=== PATIENT | female | born 1975 | race African-American/Black ===

== ENCOUNTER 2018-01-20 04:38 | Emergency (ER) | payer OTHER ==
[~2018-01-20] VITALS: Ht 160 cm; Wt 62.7 kg
[~2018-01-20 04:38] MED LIST: CARI350 PO; DEPOP150I IM; PERCT10 PO
[2018-01-20] MEDS ORDERED: TRAM50TA4 PO (04:47)
[2018-01-20] MEDS ORDERED: CYCL10 PO (04:47)
[2018-01-20 06:22] VITALS: BP 128/83
== END 2018-01-20 06:50 | disposition home or self-care (01) ==
LOC: EMS 04:39
DX: G56.91 Unspecified mononeuropathy of right upper limb (principal); F12.90 Cannabis use, unspecified, uncomplicated
CPT/HCPCS: 99283

== ENCOUNTER 2022-01-25 19:06 | Emergency (ER) | payer OTHER ==
[~2022-01-25] VITALS: Ht 160 cm; Wt 81.8 kg
[~2022-01-25 19:06] MED LIST changes: -CARI350 PO; +CYCL-448 PO; -DEPOP150I IM; +MEDR150V13 IM; +OXYC-490 PO; -PERCT10 PO; +TRAM50TA4 PO
[2022-01-25] MEDS ORDERED: SODIUM CHLORIDE 0.9% 1,000 ML IV ONE (20:45)
[2022-01-25 21:13] LABS: BASOPHILS % (AUTO) 0.3 % (0.0-2.0); EOSINOPHILS % (AUTO) 0.4 % (1.0-6.0); HEMATOCRIT 37.2 % (36-46); HEMOGLOBIN 12.4 g/dL (12.0-16.0); LYMPHOCYTES # (AUTO) 1.1 K/uL (1.0-4.8); LYMPHOCYTES % (AUTO) 24.8 % (22.0-44.0); MEAN CORPUSCULAR HEMOGLOBIN 29.7 pg (26.0-34.0); MEAN CORPUSCULAR HGB CONC 33.4 G/dL (31.0-37.0); MEAN CORPUSCULAR VOLUME 89 fL (80-100); MONOCYTES # (AUTO) 0.3 K/uL (0.1-1.0); MONOCYTES % (AUTO) 6.4 % (2.0-9.0); NEUTROPHILS # (AUTO) 3.2 K/uL (1.8-7.7); NEUTROPHILS % (AUTO) 68.1 % (40.0-70.0); PLATELET COUNT (AUTO) 266 K/uL (150-450); RED BLOOD CELL COUNT(AUTO) 4.18 MIL/uL (4.00-5.20)
[2022-01-25 22:00] LABS: APPEARANCE,URINE CLEAR (CLEAR); BILIRUBIN,URINE NEGATIVE (NEGATIVE); GLUCOSE, URINE (UA) NEGATIVE (NEGATIVE); KETONES,URINE NEGATIVE (NEGATIVE); LEUKOCYTE ESTERASE ,URINE NEGATIVE (NEGATIVE); NITRATE,URINE NEGATIVE (NEGATIVE); OCCULT BLOOD,URINE TRACE (NEGATIVE); PH,URINE 5.5 (5.0-8.0); PROTEIN,URINE NEGATIVE (NEGATIVE); SPECIFIC GRAVITIY, URINE 1.011 (1.003-1.030); UROBILINOGEN,URINE <=1.0 mg/dL (<=1.0)
[2022-01-25 22:02] LABS: ANION GAP 11 mmol/L (8-16); CALCIUM, TOTAL 9.5 mg/dL (8.8-10.5); CARBON DIOXIDE 25 mmol/L (22-29); CHLORIDE 104 mmol/L (98-107); CREATININE 0.78 mg/dL (0.60-1.30); GLUCOSE,RANDOM 109 mg/dL (70-110); POTASSIUM 3.9 mmol/L (3.5-5.1); SODIUM SERUM 140 mmol/L (136-145); UREA NITROGEN, BLOOD 4 mg/dL (7-18)
[2022-01-25 22:04] LABS: GLOMERULAR FILTR. RATE CALC > 60 mL/min (>60)
[2022-01-25 22:06] LABS: AMPHET/METH SCREEN,URINE NEGATIVE (NEGATIVE); BARBITURATE SCREEN, URINE NEGATIVE (NEGATIVE); BENZODIAZEPINES SCREEN,URINE NEGATIVE (NEGATIVE); CANNABINOID SCREEN,URINE POSITIVE (NEGATIVE); COCAINE SCREEN,URINE NEGATIVE (NEGATIVE); METHADONE SCREEN, URINE NEGATIVE (NEGATIVE); OPIATE SCREEN,URINE NEGATIVE (NEGATIVE)
[2022-01-25 22:07] LABS: PHENCYCLIDINE SCREEN,URINE NEGATIVE (NEGATIVE)
[2022-01-25 22:12] LABS: BACTERIA,URINE None Seen /HPF (None Seen); RBC,URINE 0-2 /HPF (0-2); WBC,URINE 0-2 /HPF (0-5)
[2022-01-25 22:14] LABS: ALANINE AMINOTRANSFERASE 148 U/L (12-78); ALBUMIN 3.9 g/dL (3.4-5.0); ALKALINE PHOSPHATASE 126 U/L (46-116); ASPARTATE AMINOTRANSFERASE 128 U/L (15-37); BILIRUBIN,TOTAL 0.2 mg/dL (0.1-1.0); HCG,QUANTITATIVE < 1 mIU/mL (0-6); LIPASE 76 U/L (73-393); TOTAL PROTEIN, SERUM 8.1 g/dL (6.4-8.2)
[2022-01-25] MEDS ORDERED: ONDANSETRON HCL 4 MG/2 ML VIAL IVP ONE (22:30)
[2022-01-25] MEDS ORDERED: KETOROLAC TROMETHAMINE 30 MG/ML VIAL IVP ONE (22:30)
[2022-01-25] MEDS ORDERED: MAG HYDROX/AL HYDROX/SIMETH 30 ML SUSP UDCUP PO ONE (22:30)
[2022-01-25] MEDS ORDERED: FAMOTIDINE 10 MG/ML 2 ML VIAL IVP ONE (22:30)
[2022-01-25] MEDS ORDERED: SODIUM CHLORIDE 0.9% 100 ML ONE (22:48)
[2022-01-25] MEDS ORDERED: IOHEXOL 350 MG/ML 100 ML VIAL ONE (22:49)
[2022-01-26 00:15] VITALS: BP 138/86
[2022-01-26] MEDS ORDERED: CIPROFLOXACIN HCL 250 MG TABLET PO ONE (00:15)
[2022-01-26] MEDS ORDERED: MetroNIDAZOLE 250 MG TABLET PO ONE (00:15)
[2022-01-26] MEDS ORDERED: METR500 PO (00:18)
[2022-01-26] MEDS ORDERED: CIPR500T10 PO (00:18)
== END 2022-01-26 00:44 | disposition home or self-care (01) ==
LOC: EMS 19:15
DX: K51.00 Ulcerative (chronic) pancolitis without complications (principal); F12.90 Cannabis use, unspecified, uncomplicated; Z88.0 Allergy status to penicillin; Z79.899 Other long term (current) drug therapy
CPT/HCPCS: 99285; 74177; 96374; 76700; 96375; 96361; 80053; 83690; 84702; 85025; 36415; 80307; 81001; J3490; J1885; J2405; Q9967; J7050

== ENCOUNTER 2024-06-27 10:55 | Emergency (ER) | payer MEDICAID, OTHER ==
[~2024-06-27] VITALS: Ht 160 cm; Wt 61.4 kg
[~2024-06-27 10:55] MED LIST changes: +CIPR500T10 PO; +METR500 PO; -TRAM50TA4 PO; +TRAM50TA5 PO
[2024-06-27 10:59] VITALS: TEMP 99.1
[2024-06-27 12:07] LABS: BASOPHILS % (AUTO) 0.8 % (0.0-2.0); EOSINOPHILS % (AUTO) 0.2 % (1.0-6.0); HEMOGLOBIN 12.3 g/dL (12.0-16.0); LYMPHOCYTES # (AUTO) 0.2 K/uL (1.0-4.8); LYMPHOCYTES % (AUTO) 3.7 % (22.0-44.0); MEAN CORPUSCULAR HEMOGLOBIN 30.9 pg (26.0-34.0); MEAN CORPUSCULAR HGB CONC 33.3 G/dL (31.0-37.0); MEAN CORPUSCULAR VOLUME 93 fL (80-100); MONOCYTES # (AUTO) 0.8 K/uL (0.1-1.0); NEUTROPHILS # (AUTO) 4.1 K/uL (1.8-7.7); NEUTROPHILS % (AUTO) 80.3 % (40.0-70.0); PLATELET COUNT (AUTO) 325 K/uL (150-450); RED BLOOD CELL COUNT(AUTO) 3.99 MIL/uL (4.00-5.20); RED CELL DISTRIBUTION WIDTH 13.7 % (11.5-14.5); WHITE BLOOD COUNT (AUTO) 5.1 K/uL (4.5-11.0)
[2024-06-27 12:16] LABS: ANION GAP 12 mmol/L (8-16); CALCIUM, TOTAL 8.6 mg/dL (8.8-10.5); CARBON DIOXIDE 26 mmol/L (22-29); CHLORIDE 97 mmol/L (98-107); CREATININE 0.85 mg/dL (0.60-1.30); GLOMERULAR FILTR. RATE CALC > 60 mL/min (>60); GLUCOSE,RANDOM 105 mg/dL (70-110); POTASSIUM 3.8 mmol/L (3.5-5.1); SODIUM SERUM 135 mmol/L (136-145); UREA NITROGEN, BLOOD 7 mg/dL (7-18)
[2024-06-27] MEDS: KETOROLAC TROMETHAMINE 30 MG/ML VIAL IVP ONE (12:31)
[2024-06-27] MEDS: SODIUM CHLORIDE 0.9% 2,000 ML IV ONE (12:31)
[2024-06-27] MEDS: METHOCARBAMOL 100 MG/ML 10 ML VIAL IVP ONE (12:31)
[2024-06-27] MEDS: ONDANSETRON HCL 4 MG/2 ML VIAL IVP ONE (12:31)
[2024-06-27] MEDS: HYDROmorphone HCL 2 MG/ML SYRINGE IVP ONE (13:32)
[2024-06-27 13:40] VITALS: BP 133/78; PULSE 98; RESP 17; O2SAT 100
[2024-06-27] MEDS ORDERED: METH-659 PO (14:11)
[2024-06-27] MEDS ORDERED: ONDA-104 PO (14:11)
[2024-06-27] MEDS ORDERED: IBUP-1554 PO (14:11)
[2024-06-27] MEDS ORDERED: HYDR-4062 PO (14:11)
== END 2024-06-27 14:53 | disposition home or self-care (01) ==
LOC: EMS 10:56
DX: G89.29 Other chronic pain (principal); M54.50 Low back pain, unspecified; R51.9 Headache, unspecified; F12.90 Cannabis use, unspecified, uncomplicated; Z88.0 Allergy status to penicillin; Z90.49 Acquired absence of other specified parts of digestive tract; Z98.890 Other specified postprocedural states
CPT/HCPCS: 99284; 96374; 96375; 96361; 80048; 84703; 85025; 36415; J1171; J1885; J2405; J2800; J7030